=== PATIENT | male | born 1975 | race Caucasian/White ===

== ENCOUNTER 2020-09-21 22:51 | Emergency (ER) | payer SELFPAY ==
[2020-09-21 23:12] LABS: BASOPHIL 0.7 % (0-2); EOSINOPHIL 1.2 % (0-5); LYMPHOCYTE 26.3 % (15-48); MCH 31.9 pg (25.0-31.0); MCHC 34.9 g/dL (32.0-36.0); MCV 91.5 fL (78.0-100.0); MPV 11.9 fL (6.0-9.5); NEUTROPHIL 65.6 % (41-80); NRBC 0; PLT 184 K/uL (150-400)
[2020-09-21 23:23] LABS: AMPHETAMINES NEGATIVE (NEGATIVE); BARBITURATES NEGATIVE (NEGATIVE); ECSTASY (MDMA) NEGATIVE (NEGATIVE); MARIJUANA (THC) NEGATIVE (NEGATIVE); METHADONE NEGATIVE (NEGATIVE); OPIATES NEGATIVE (NEGATIVE); OXYCODONE NEGATIVE (NEGATIVE)
[2020-09-21 23:34] LABS: ALBUMIN 4.2 g/dL (3.4-5.0); CREATININE 1.2 mg/dL (0.67-1.17); GLOBULIN (CALCULATION) 3.4 g/dL; POTASSIUM 3.5 mmol/L (3.5-5.1); TOTAL PROTEIN 7.6 g/dL (6.4-8.2)
[2020-09-21 23:35] LABS: BILIRUBIN - TOTAL 0.2 mg/dL (0.2-1.0)
== END 2020-09-22 02:30 | disposition left against medical advice (07) ==
LOC: FER 22:51
PROVIDERS: Emergency Medicine
DX: F32.9 Major depressive disorder, single episode, unspecified (principal); Z88.0 Allergy status to penicillin; Z20.822 Contact with and (suspected) exposure to COVID-19
CPT/HCPCS: 36415; 80053; 80305; 85025; 99285; G0480; U0002